=== PATIENT | female | born 1980 | race Caucasian/White ===

== ENCOUNTER 2019-08-03 08:42 | Observation (INO) ==
[2019-08-03 09:59] LABS: Basophils # (auto) 0.02 K/uL (0-0.2); Basophils % (auto) 0.5 %; Eosinophils # (auto) 0.04 K/uL (0-0.5); Eosinophils % (auto) 0.9 %; Hematocrit (blood only) 38.9 % (37-47); Hemoglobin 13.1 g/dL (12.0-16.0); Immature Granulocytes # (auto) 0.01 K/uL (0.00-0.02); Immature Granulocytes % (auto) 0.2 %; Lymphocytes # (auto) 1.21 K/uL (1.2-3.4); Lymphocytes % (auto) 28.3 %; Mean Corpuscular Hemoglobin 28.2 pg (25-34); Mean Corpuscular Hgb Conc 33.7 g/dL (32-36); Mean Corpuscular Volume 83.7 fL (80-100); Mean Platelet Volume 9.2 fL (7.4-10.4); Monocytes # (auto) 0.53 K/uL (0.11-0.59); Monocytes % (auto) 12.4 %; Neutrophils # (auto) 2.46 K/uL (1.4-6.5); Neutrophils % (auto) 57.7 %; Platelet Count 232 K/uL (130-400); RDW Coefficient of Variation 13.2 % (11.5-14.5); Red Blood Count 4.65 M/uL (4.2-5.4); White Blood Count 4.27 K/uL (4.8-10.8)
--- NOTE | 2019-08-03 10:17 | Emergency Department Note ---
Entered by Evita Solorzano acting as a scribe for Qian Beckett DO History of Present Illness General Chief complaint: Chest Pain Stated complaint: CHEST PAIN, SHORTNESS OF BREATH Source: patient History of Present Illness Onset (ago): day(s) (last night) Location: chest Pain Consistency: + other (persistent) Maximum Pain Intensity: 5 Quality: + other (discomfort) Relieved By: not by medication (aspirin) Exacerbated By: not by movement and not by other (drinking coffee) Associated symptoms: + denies other symptoms (stress, anxiety, urinary changes) and + other (lightheadedness, nausea, shortness of breath, diarrhea) The patient is a 38 year old female that is presenting to the Emergency Room with complaints of a persistent chest discomfort that started around 2100 last night. The patient reports that she had some associated lightheadedness and nausea. She states that she felt short of breath. She notes that her symptoms woke her up several times last night. She reports that she took an aspirin dur ing the night but she is unsure if it relieved her symptoms as she went back to sleep. She denies having taken anything else for her symptoms. She states that the discomfort continued into the morning, so she decided to come to the ED to have it evaluated. She denies any radiation of the pain into her back or jaw. She notes that the discomfort is not relieved by positional changes. She denies any history of similar past episodes. She denies any history of GERD or any recent changes in her diet. She states that she had some diarrhea last night. She denies any urinary changes. She reports that she drank coffee this morning without any exacerbation of her symptoms. She notes that she has not had anything else to eat or drink today. She denies any recent travel. She notes that she had a fever, myalgia, and GI upset last week and states that she has had a cold for the past several months. She denies any family history of blood clots. She denies any first degree relatives with cardiac issues. The patient reports that she takes progesterone and estrogen s/p an oophorectomy. She denies any breast pain but notes that she is status post a bilateral mastectomy. She denies feeling unusually stressed or anxious recently. Home Medications Home Medications Medication Instructions Recorded Confirmed Type atorvastatin 20 mg PO DAILY 08/03/19 08/03/19 History estradiol 1 patch TOPICAL [id number] 08/03/19 08/03/19 History multivitamin 1 tab PO QAM 08/03/19 08/03/19 History omega 0-msv-aso-fish oil [Fish Oil] 1 cap PO DAILY 08/03/19 08/03/19 History progesterone micronized 100 mg PO DAILY 08/03/19 08/03/19 History aspirin [Ecotrin Low Strength] 81 mg PO QAM 30 Days #30 tab 08/04/19 Rx isosorbide mononitrate 30 mg PO QAM #30 tab 08/04/19 Rx Allergies Allergy/AdvReac Type Severity Reaction Status Date / Time No Known Allergies Allergy Unverified 08/03/19 10:01 Past Med/Surg History Medical History BRCA1 gene mutation positive in female Dyslipidemia Hormone replacement therapy Surgical History H/O bilateral mastectomy H/O dilation and curettage H/O oophorectomy [place] teeth removed Family History Mother Breast cancer Social History Preferred Language: Korean Communication Ability: Effective 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 and A total of 10 systems reviewed and were otherwise negative Physical Exam Vital Signs Vital Signs - 24 hr 08/03/19 08:46 08/03/19 09:00 08/03/19 09:02 Temperature 97.5 F L Temperature Source Oral Pulse Rate 69 80 82 Pulse Rate from SpO2 Sensor 71 75 Respiratory Rate 18 23 16 Respiratory Effort / Characteristics Non-Labored Spontaneous Respiratory Depth Normal Respiratory Pattern Regular Blood Pressure 130/87 116/70 Blood Pressure Mean 101 74 Blood Pressure Position Sitting Pulse Oximetry 100 100 100 Oxygen Delivery Method Room Air Sepsis Recent Fever Within 48 Hours No Sepsis New/Unexplained Change in Mental Status No Sepsis Action Taken by Nursing No Action Required 08/03/19 09:05 08/03/19 09:30 08/03/19 09:31 Temperature Temperature Source Pulse Rate 69 78 Pulse Rate from SpO2 Sensor 68 79 Respiratory Rate 11 L 15 Respiratory Effort / Characteristics Non-Labored Spontaneous Respiratory Depth Normal Respiratory Pattern Blood Pressure 115/75 Blood Pressure Mean 82 Blood Pressure Position Pulse Oximetry 98 99 Oxygen Delivery Method Sepsis Recent Fever Within 48 Hours Sepsis New/Unexplained Change in Mental Status Sepsis Action Taken by Nursing 08/03/19 10:00 08/03/19 10:01 Temperature Temperature Source Pulse Rate 63 61 Pulse Rate from SpO2 Sensor 64 63 Respiratory Rate 10 L 13 Respiratory Effort / Characteristics Respiratory Depth Respiratory Pattern Blood Pressure 107/73 Blood Pressure Mean 84 Blood Pressure Position Pulse Oximetry 100 99 Oxygen Delivery Method Sepsis Recent Fever Within 48 Hours Sepsis New/Unexplained Change in Mental Status Sepsis Action Taken by Nursing GENERAL: alert, well appearing, well nourished, no distress, non-toxic EYE EXAM: normal conjunctiva, PERRL and EOM's grossly intact OROPHARYNX: no exudate, no erythema, lips, buccal mucosa, and tongue normal and mucous membranes are moist NECK: supple, no nuchal rigidity, no adenopathy, non-tender LUNGS: Clear to auscultation. Normal chest wall mechanics, no w/r/r HEART: no murmurs, S1 normal and S2 normal CHEST: No reproducible chest wall tenderness. ABDOMEN: abdomen soft, non-tender, normo-active bowel sounds, no masses, no rebound or guarding. BACK: Back is symmetrical on inspection and there is no deformity, no midline tenderness, no CVA tenderness. SKIN: no rashes and no bruising UPPER EXTREMITIES: upper extremities are grossly normal. FROM, nml pulses b/l. LOWER EXTREMITIES: No pitting edema. FROM, nml pulses b/l. NEURO EXAM: Normal sensorium, cranial nerves II-XII grossly intact, normal speech, no gross weakness of arms, no gross weakness of legs. Course Course 919:The patient was evaluated in room B08. A complete history and physical examination was performed. 1037: Troponin is 1.21ng/mL. 1045: I updated the patient on her current lab and imaging results. She denies any current discomfort, pain, nausea, or dizziness. She is amenable to the treatment plan. She will be evaluated for further management and care in the hospital. 1058: I discussed the patients case with DICK Vora, who will evaluate the patient for further management and care with Dr. Pacheco as the attending physician. Administered Medications Discontinued Medications Acetaminophen (Tylenol) 650 mg PO Q4H PRN PRN Reason: Pain or Fever Stop: 09/02/19 12:32 Last Admin: 08/04/19 15:13 Dose: 650 mg Documented by: [id number] Admin: 08/04/19 00:52 Dose: 650 mg Documented by: [id number] Aspirin (Aspirin) 324 mg PO NOW STA Stop: 08/03/19 10:45 Last Admin: 08/03/19 11:10 Dose: 324 mg Documented by: [id number] Aspirin (Ecotrin Ectab) 81 mg PO [facility] Stop: 09/03/19 08:59 Last Admin: 08/04/19 07:45 Dose: 81 mg Documented by: [id number] Atorvastatin Calcium (Lipitor) 20 mg PO NOW STA Stop: 08/03/19 13:11 Last Admin: 08/03/19 13:58 Dose: 20 mg Documented by: [id number] Atorvastatin Calcium (Lipitor) 40 mg PO NOW STA Stop: 08/03/19 13:12 Last Admin: 08/03/19 13:58 Dose: 40 mg Documented by: [id number] [facility] ([facility]itor) [facility] [place] [facility] [place]: 09/03/19 08:59 Last Admin: 08/04/19 07:45 Dose: 80 mg Documented by: [id number] Fentanyl Citrate (Fentanyl Citrate) Confirm Administered Dose 100 mcg .ROUTE .STK-MED ONE Stop: 08/04/19 09:34 Last Increment: 08/04/19 10:25 Dose: 25 mcg Documented by: [id number] Fish Oil ([place]-3 (Purified Fish Oil)) 1 gm PO DAILY COUNTS INCLUDE 234 BEDS AT THE [facility] Stop: 09/03/19 08:59 Last Admin: 08/04/19 07:45 Dose: 1 gm Documented by: [id number] Heparin Sodium (Porcine) (Heparin Iv Bolus (Traveling Nurse Use Only)) Confirm Administered Dose 10,000 units .ROUTE .STK-MED ONE Stop: 08/04/19 09:34 Last Admin: 08/04/19 10:25 Dose: Not Given Documented by: [id number] Heparin Sodium/Dextrose () 1 ea IV Q30M COUNTS INCLUDE 234 BEDS AT THE [facility]; Protocol Stop: 08/03/19 23:59 Last Admin: 08/03/19 16:54 Dose: Not Given Documented by: [id number] Heparin Sodium/Sodium Chloride (Heparin/Nss 1000 Unit/500ml Flush Bag) Confirm Administered Dose 3,000 units IV .STK-MED ONE Stop: 08/04/19 09:34 Last Admin: 08/04/19 09:47 Dose: 3,000 units Documented by: [id number] Heparin Sodium/Dextrose (Heparin Sodium/Dextrose) 25,000 units in 500 mls @ 0 mls/hr IV .Q0M COUNTS INCLUDE 234 BEDS AT THE [facility]; Protocol Stop: 09/02/19 16:44 Last Titration: 08/04/19 08:47 Dose: 0 units/hr, 0 mls/hr Documented by: [id number] Cosigned by: [id number] Titration: 08/04/19 01:21 Dose: 1,000 units/hr, 20 mls/hr Documented by: [id number] Cosigned by: [id number] Titration: 08/03/19 18:58 Dose: 1,000 units/hr, 20 mls/hr Documented by: [id number] Cosigned by: [id number] Admin: 08/03/19 18:02 Dose: 1,000 units/hr, 20 mls/hr Documented by: [id number] Cosigned by: [id number] Heparin Sodium (Porcine) 4,000 (units/ Syringe) 4 mls @ 10 mls/min IV NOW STA Stop: 08/03/19 16:50 Last Admin: 08/03/19 18:01 Dose: 10 mls/min Documented by: [id number] Cosigned by: [id number] Sodium Chloride (Nss) 500 mls @ 500 mls/hr IV .Q1H ONE Stop: 08/04/19 01:47 Last Infusion: 08/04/19 02:19 Dose: 0 mls/hr Documented by: [id number] Admin: 08/04/19 01:16 Dose: 500 mls/hr Documented by: [id number] Dextrose/Lactated Ringer's (D5w And Lactated Ringers) 1,000 mls @ 100 mls/hr IV .Q10H [facility] Stop: 09/03/19 01:59 Last Infusion: 08/04/19 08:47 Dose: 100 mls/hr Documented by: [id number] Infusion: 08/04/19 07:43 Dose: 75 mls/hr Documented by: [id number] Admin: 08/04/19 02:16 Dose: 40 mls/hr Documented by: [id number] Sodium Chloride (Nss) 500 mls @ 500 mls/hr IV .Q1H ONE Stop: 08/04/19 05:33 Last Infusion: 08/04/19 06:02 Dose: 0 mls/hr Documented by: [id number] Admin: 08/04/19 04:52 Dose: 500 mls/hr Documented by: [id number] Isosorbide Mononitrate (Imdur Extended Rel) 30 mg PO QAM COUNTS INCLUDE 234 BEDS AT THE [facility] Stop: 09/03/19 11:29 Last Admin: 08/04/19 12:57 Dose: 30 mg Documented by: [id number] Metoprolol Tartrate (Lopressor) 12.5 mg PO BID COUNTS INCLUDE 234 BEDS AT THE [facility] Stop: 09/02/19 20:59 Last Admin: 08/04/19 07:42 Dose: Not Given Documented by: [id number] Admin: 08/03/19 21:33 Dose: 12.5 mg Documented by: [id number] Midazolam HCl (Versed) Confirm Administered Dose 2 mg .ROUTE .STK-MED ONE Stop: 08/04/19 09:34 Last Admin: 08/04/19 10:25 Dose: 2 mg Documented by: [id number] Miscellaneous (Order Awaiting Action) 1 ea N/A QS COUNTS INCLUDE 234 BEDS AT THE [facility] Stop: 09/02/19 15:59 Last Admin: 08/04/19 07:53 Dose: Not Given Documented by: [id number] Admin: 08/03/19 23:44 Dose: Not Given Documented by: [id number] Admin: 08/03/19 15:32 Dose: Not Given Documented by: [id number] Nicardipine HCl (Cardene) Confirm Administered Dose 25 mg .ROUTE .STK-MED ONE Stop: 08/04/19 09:34 Last Admin: 08/04/19 09:45 Dose: 25 mg Documented by: [id number] Nitroglycerin (Nitro-Bid 2%) 0.5 inch EXT Q6 COUNTS INCLUDE 234 BEDS AT THE [facility] Stop: 09/02/19 16:59 Last Admin: 08/04/19 00:51 Dose: Not Given Documented by: [id number] Admin: 08/03/19 18:35 Dose: 0.5 inch Documented by: [id number] Nitroglycerin/Dextrose (Nitroglycerin/D5w 100 Mcg/Ml 20ml Syringe) Confirm Administered Dose 2,000 mcg .ROUTE .STK-MED ONE Stop: 08/04/19 09:35 Last Admin: 08/04/19 09:47 Dose: 2,000 mcg Documented by: [id number] Non-Formulary Medication (Estradiol) 1 patch TOP 2XWK [facility] Stop: 09/02/19 12:32 Last Admin: 08/03/19 15:32 Dose: Not Given Documented by: [id number] Tramadol HCl (Ultram) 25 mg PO Q4H PRN PRN Reason: Pain Stop: 09/03/19 01:18 Last Admin: 08/04/19 01:43 Dose: 25 mg Documented by: [id number] Medical Decision Making Differential Diagnosis Differential diagnoses includes but is not limited to acute coronary syndrome, myocardial infarction, pericarditis, pulmonary embolus, aortic dissection, pneumonia, pneumothorax, musculoskeletal, shingles, esophageal. Medical Records Attestation: I reviewed the patient's medical records. Home Medications Current Medication List: was personally reviewed by me Laboratory Data Attestation: I reviewed the patient's lab results. Result diagrams: 08/04/19 01:36 08/04/19 01:36 Lab Results 08/03/19 08/03/19 08/03/19 Range/Units 09:45 09:45 09:45 WBC 4.27 L (4.8-10.8) K/uL RBC 4.65 (4.2-5.4) M/uL Hgb 13.1 (12.0-16.0) g/dL Hct 38.9 (37-47) % MCV 83.7 (80-100) fL MCH 28.2 (25-34) pg MCHC 33.7 (32-36) g/dL RDW Std Deviation 40.0 (36.4-46.3) fL RDW Coeff of Benoit 13.2 (11.5-14.5) % Plt Count 232 (130-400) K/uL MPV 9.2 (7.4-10.4) fL Immature Gran % (Auto) 0.2 % Neut % (Auto) 57.7 % Lymph % (Auto) 28.3 % [place] % (Auto) 12.4 % Eos % (Auto) 0.9 % Baso % (Auto) 0.5 % Immature Gran # (Auto) 0.01 (0.00-0.02) K/uL Neut # (Auto) 2.46 (1.4-6.5) K/uL Lymph # (Auto) 1.21 (1.2-3.4) K/uL [place] # (Auto) 0.53 (0.11-0.59) K/uL Eos # (Auto) 0.04 (0-0.5) K/uL Baso # (Auto) 0.02 (0-0.2) K/uL D-Dimer 360 (0-500) ug/L FEU Sodium 141 (136-145) mmol/L Potassium 4.2 (3.5-5.1) mmol/L Chloride 109 H (98-107) mmol/L Carbon Dioxide 28 (21-32) mmol/L Anion Gap 4.0 (3-11) BUN 9 (7-18) mg/dl Creatinine 0.77 (0.6-1.2) mg/dl Est Cr Clr Drug Dosing 83.9 ml/min Est GFR ( Amer) 111.9 Est GFR (Non-Af Amer) 96.6 BUN/Creatinine Ratio 11.7 (10-20) Glucose 89 (70-99) mg/dl Calcium 9.0 (8.5-10.1) mg/dl Magnesium 2.4 (1.8-2.4) mg/dl Total Bilirubin 0.3 (0.2-1) mg/dl AST 29 (15-37) U/L ALT 26 (12-78) U/L Alkaline Phosphatase 78 (45-117) U/L Total Creatine Kinase (26-192) U/L Troponin I 1.210 H* (0-0.045) ng/ml NT-Pro-B Natriuret Pep 206 (0-450) pg/ml Total Protein 6.9 (6.4-8.2) gm/dl Albumin 3.5 (3.4-5.0) gm/dl Globulin 3.4 (2.5-4.0) gm/dl Albumin/Globulin Ratio 1.0 (0.9-2) Lipase 106 (73-393) U/L TSH 0.618 (0.300-4.500) uIu/ml HCG, Qual (Negative) 08/03/19 08/03/19 Range/Units 09:45 09:45 WBC (4.8-10.8) K/uL RBC (4.2-5.4) M/uL Hgb (12.0-16.0) g/dL Hct (37-47) % MCV (80-100) fL MCH (25-34) pg MCHC (32-36) g/dL RDW Std Deviation (36.4-46.3) fL RDW Coeff of Benoit (11.5-14.5) % Plt Count (130-400) K/uL MPV (7.4-10.4) fL Immature Gran % (Auto) % Neut % (Auto) % Lymph % (Auto) % [place] % (Auto) % Eos % (Auto) % Baso % (Auto) % Immature Gran # (Auto) (0.00-0.02) K/uL Neut # (Auto) (1.4-6.5) K/uL Lymph # (Auto) (1.2-3.4) K/uL [place] # (Auto) (0.11-0.59) K/uL Eos # (Auto) (0-0.5) K/uL Baso # (Auto) (0-0.2) K/uL D-Dimer (0-500) ug/L FEU Sodium (136-145) mmol/L Potassium (3.5-5.1) mmol/L Chloride (98-107) mmol/L Carbon Dioxide (21-32) mmol/L Anion Gap (3-11) BUN (7-18) mg/dl Creatinine (0.6-1.2) mg/dl Est Cr Clr Drug Dosing ml/min Est GFR ( Amer) Est GFR (Non-Af Amer) BUN/Creatinine Ratio (10-20) Glucose (70-99) mg/dl Calcium (8.5-10.1) mg/dl Magnesium (1.8-2.4) mg/dl Total Bilirubin (0.2-1) mg/dl AST (15-37) U/L ALT (12-78) U/L Alkaline Phosphatase (45-117) U/L Total Creatine Kinase 158 (26-192) U/L Troponin I (0-0.045) ng/ml NT-Pro-B Natriuret Pep (0-450) pg/ml Total Protein (6.4-8.2) gm/dl Albumin (3.4-5.0) gm/dl Globulin (2.5-4.0) gm/dl Albumin/Globulin Ratio (0.9-2) Lipase (73-393) U/L TSH (0.300-4.500) uIu/ml HCG, Qual Negative (Negative) Imaging Data Radiologist's Impression: Radiology results as stated below per my review and the radiologist's interpretation: XR chest 1V portable HISTORY: 38 years-old Female chest pain acute atypical chest pain COMPARISON: None available TECHNIQUE: Portable AP view of the chest FINDINGS: Cardiomediastinal and hilar silhouettes are within normal limits. No pneumothorax, pleural effusion, focal airspace consolidation or overt pulmonary edema. Surgical clips project over the chest wall. Bones of the chest appear grossly intact. IMPRESSION: No acute process. The above report was generated using voice recognition software. It may contain grammatical, syntax or spelling errors. Electronically signed by: Perez Zamora M.D. 08/03/2019 10:29 AM ECG Data Attestation: I personally reviewed and interpreted this ECG as follows: Indication: + chest pain Rate (beats per minute): 66 Rhythm: + sinus rhythm ECG Intervals/blocks: + Normal QRS, + Normal QT and + Normal [place] ECG [place]: + Normal ECG ST segments: + T-wave inversions (aVF); no ST elevation ECG Findings: + Other (low voltage); no PACs and no PVCs Blood Pressure Blood Pressure Findings: Normal blood pressure MDM Narrative Pt here well appearing and pain improving. HEART score 1 based on tobacco use and hyperlipidemia. No recent symptoms with exertion and no significant family hx. Discussed all results with family and discussed need for additional inpatient mgmt. Pt in agreement with plan. Pt pain free here. Given ASA. Possible pericarditis/myocarditis, pericardial effusion due to recent URI symptoms. No prior cardiac evaluation. Will defer additional meds including heparin to inpatient team given asymptomatic at this time. No acute EKG changes . Case discussed with hospitalist. Impression & Plan Chest pain, Elevated troponin Discharge Plan Visit Data *Final* Discharge Date/Time: 08/03/19 12:15 Chief Complaint: Chest Pain Stated Complaint: CHEST PAIN, SHORTNESS OF BREATH ED Provider: Qian Beckett Discharge Problem: Chest pain, Elevated troponin Patient Disposition: Admitted As Inpatient Discharge Instructions Interventions: ED Discharge Assessment Last Done: 08/03/19 12:15 Discharge Problem: Chest pain Qualifiers: Chest pain type: unspecified Qualified Code(s): R07.9 - Chest pain, unspecified The scribe's documentation has been prepared under my direction and personally reviewed by me in its entirety. I confirm that the note above accurately reflects all work, treatment, procedures, and medical decision making performed by me.
[2019-08-03 10:21] LABS: Pregnancy Test, Serum Negative (Negative)
[2019-08-03 10:22] LABS: Albumin Level 3.5 gm/dl (3.4-5.0); BUN Creatinine Ratio 11.7 (10-20); Creatinine Clr Calc Pharmacy 83.9 ml/min; Est GFR (African American) 111.9; Est GFR (Non-African American) 96.6; Magnesium 2.4 mg/dl (1.8-2.4); Potassium 4.2 mmol/L (3.5-5.1)
--- NOTE | 2019-08-03 10:31 | XRay Report ---
XR chest 1V portable HISTORY: 38 years-old Female chest pain acute atypical chest pain COMPARISON: None available TECHNIQUE: Portable AP view of the chest FINDINGS: Cardiomediastinal and hilar silhouettes are within normal limits. No pneumothorax, pleural effusion, focal airspace consolidation or overt pulmonary edema. Surgical clips project over the chest wall. Demetris jose alfredo of the chest appear grossly intact. IMPRESSION: No acute process. The above report was generated using voice recognition software. It may contain grammatical, syntax o r spelling errors. Electronically signed by: Perez Zamora M.D. 08/03/2019 10:29 AM
[2019-08-03 10:35] LABS: Bilirubin,Total 0.3 mg/dl (0.2-1); Globulin 3.4 gm/dl (2.5-4.0); Thyroid Stimulating Hormone 0.618 uIu/ml (0.300-4.500); Total Protein 6.9 gm/dl (6.4-8.2); Troponin I 1.21 ng/ml (0-0.045)
[2019-08-03 10:40] LABS: D Dimer 360 ug/L FEU (0-500)
[2019-08-03] MEDS ORDERED: ASPIRIN CHEW 324 MG PO STA (10:44)
--- NOTE | 2019-08-03 11:32 | History & Physical Report ---
Date of Service August 03, 2019 Assessment & Plan (1) Chest pain: Multiple episodes of chest pain in setting of hyperlipidemia and HRT use. Also patient reporting recent cold symptoms with significant myalgia and malaise just 2 to 3 days ago, which may be influencing troponin. Mildly elevated troponin at 1.2 with no evidence of acute ischemia but does have T wave inversions in V3 and aVF without baseline EKG to review. LORNA risk score is 2. We will continue baby aspirin, add Lipitor 80 mg for plaque stabilization, and trend troponin. We will add a CK to blood work already drawn. Currently patient is chest pain-free but have nitro or morphine available if symptoms return. If pain is unable to be controlled may consider adding heparin and contacting cardiology to consider catheterization. N.p.o. except ice chips and small sips of water while we are monitoring over the next several hours until the next troponin is drawn. Echo ordered. If chest pain returns would get repeat EKG to monitor for dynamic changes. (2) Dyslipidemia: Recently started Lipitor within the last couple of months and doing well on Lipitor 20 daily. She has a family history of hyperlipidemia. Recent LDL was around 200. Repeat lipids in am. (3) BRCA1 gene mutation positive in female: Status post double mastectomy with oophorectomy in [address] [facility], on hormone replacement therapy with estrogen patch and daily progesterone. Continue HRT. (4) DVT prophylaxis: Lovenox Full code Dispo-to telemetry, expect home in a.m. pending cardiac recommendations and evolution of symptoms over the next 24 hours. Angie Pacheco DO [facility] History of Present Illness Chief Complaint: chest pain Primary Care Provider: Alberto Juarez MD 38-year-old female with onset of chest pain last night while sitting playing board game at her table. Pain was in the left anterior chest and did not radiate. Although did she did not report any associated symptoms to me she did report to the ER physician she had associated lightheadedness and nausea and felt short of breath with the pain. Her symptoms woke her up several times last night and the pain persisted when she woke up this morning and was associated with some nausea. She took an aspirin during the night but is unsure if it relieves her symptoms. 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 She is a non-smoker with risk factors including early menopause secondary to oophorectomy on hormone replacement therapy for the past 4 years and hyperlipidemia recently discovered and she was placed on Lipitor within the last couple of months. LDL is approximately 200. She has a family history of hyperlipidemia but no known history of early heart disease. She also reports a recent upper respiratory tract infection which involves symptoms of severe myalgia and malaise where she was lying in bed for almost a full day just 2 to 3 days ago. Her child was also ill with the same symptoms. These have since improved. Troponin is mildly elevated at 1.2 today otherwise EKG reveals no evidence of active ischemia, d- dimer is normal at 360. Her chest pain has resolved. She was given an aspirin 324 mg morning but has not had any nitroglycerin or other pain medication. She did take her Lipitor 20mg this morning. Review of systems also reveals one episode of diarrhea this morning. She denies any recent travel. Allergies Allergy/AdvReac Type Severity Reaction Status Date / Time No Known Allergies Allergy Unverified 08/03/19 10:01 Home Medications Home Medications Medication Instructions Recorded Confirmed Type atorvastatin 20 mg PO DAILY 08/03/19 08/03/19 History estradiol 1 patch TOPICAL 2XWK 08/03/19 08/03/19 History multivitamin 1 tab PO QAM 08/03/19 08/03/19 History omega 3-iyk-mjk-fish oil [Fish Oil] 1 cap PO DAILY 08/03/19 08/03/19 History progesterone micronized 100 mg PO DAILY 08/03/19 08/03/19 History Past Med/Surg History Medical History BRCA1 gene mutation positive in female Hormone replacement therapy Surgical History H/O bilateral mastectomy H/O dilation and curettage H/O oophorectomy [place] teeth removed Family History Mother Breast cancer Social History Preferred Language: Macanese Communication Ability: Effective 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 Beliefs That Will Affect Care: None Current Living Situation: Family Other Information That Helps Us Care for You: No Feels Safe at Home: Yes Safety Concerns: Feels Safe At This Time Smoking Status: Current some day smoker Cigarettes Per Day: 1-2 ; Hx Alcohol Use: Yes Alcohol type: wine Hx Substance Use: No Review of Systems Review of Systems: All systems reviewed & are unremarkable except as noted in HPI & below Physical Exam Physical Exam: CONSTITUTIONAL: WNWD, vitals as above, generally well- appearing EYES: PERRL, normal conjunctivae, no scleral icterus ENT: external ear and nose normal, oropharynx clear, MMM NECK: trachea midline RESPIRATORY: clear to auscultation bilaterally, no crackles, rales or wheezes, normal respiratory effort CARDIOVASCULAR: regular rate and rhythm, S1 and 2 heard without murmurs, gallops or rubs, no JVD, no peripheral edema CHEST: inspection of chest was normal, nontender to palpation, skin appears normal. GASTROINTESTINAL: normal bowel sounds, soft, nontender, nondistended MUSCULOSKELETAL: strength 5/5 throughout, head is normocephalic and atraumatic SKIN: warm and dry NEUROLOGIC: CN 2-12 grossly intact, no sensory deficit, normal cognition, normal speech, no gross neurologic deficits. PSYCHIATRIC: alert cooperative and oriented to person, place and time. Results & Data Vital Signs (Past 12 Hours) Vital Signs Temp Pulse Pulse Resp BP BP Pulse Ox 08/03/19 11:11 68 15 117/67 99 08/03/19 10:01 61 13 99 08/03/19 10:00 63 10 L 107/73 100 08/03/19 09:31 78 15 99 08/03/19 09:30 69 11 L 115/75 98 08/03/19 09:02 82 16 100 08/03/19 09:00 80 23 116/70 100 08/03/19 08:46 36.4 C L 69 18 130/87 100 Laboratory Results Short CBC 08/03/19 Range/Units 09:45 WBC 4.27 L (4.8-10.8) K/uL Hgb 13.1 (12.0-16.0) g/dL Hct 38.9 (37-47) % Plt Count 232 (130-400) K/uL BMP 08/03/19 09:45 Sodium 141 Potassium 4.2 Chloride 109 H Carbon Dioxide 28 BUN 9 Creatinine 0.77 Glucose 89 Calcium 9.0 Cardiac Enzymes 08/03/19 08/03/19 Range/Units 09:45 09:45 Total Creatine Kinase 158 (26-192) U/L Troponin I 1.210 H* (0-0.045) ng/ml Liver Function 08/03/19 Range/Units 09:45 Total Bilirubin 0.3 (0.2-1) mg/dl AST 29 (15-37) U/L ALT 26 (12-78) U/L Alkaline Phosphatase 78 (45-117) U/L Albumin 3.5 (3.4-5.0) gm/dl Diagnostic Findings XR chest 1V portable HISTORY: 38 years-old Female chest pain acute atypical chest pain COMPARISON: None available TECHNIQUE: Portable AP view of the chest FINDINGS: Cardiomediastinal and hilar silhouettes are within normal limits. No pneumothorax, pleural effusion, focal airspace consolidation or overt pulmonary edema. Surgical clips project over the chest wall. Bones of the chest appear grossly intact. IMPRESSION: No acute process. Medications Administered ASA 324mg ECG Rhythm: sinus rhythm (TWI in V3, AVF. No ST changes or q waves noted.) Code Status & VTE Plan VTE Prophylaxis Plan VTE Prophylaxis will be ordered: Yes (1) Chest pain Chest pain type: unspecified Qualified Code(s): R07.9 - Chest pain, unspecified
[2019-08-03] MEDS ORDERED: NITROGLYCERIN SL 0.4 MG/TAB TAB SL PRN (12:33)
[2019-08-03] MEDS ORDERED: MoRPHine SULFATE 2 MG/ML CARP IV PRN (12:33)
[2019-08-03] MEDS ORDERED: POLYETHYLENE (MIRALAX) 17 GM PACK PO PRN (12:33)
[2019-08-03] MEDS ORDERED: ONDANSETRON INJ 2 MG/ML 2 ML VIAL IV PRN (12:33)
[2019-08-03] MEDS ORDERED: ESTRADIOL TOP SCH (12:33)
[2019-08-03] MEDS ORDERED: ATORVASTATIN 20 MG TAB PO STA (13:10)
[2019-08-03] MEDS ORDERED: ATORVASTATIN 40 MG TAB PO STA (13:11)
[2019-08-03] MEDS ORDERED: HEPARIN SODIUM/DEXTROSE 25,000 UNITS/500 ML BAG IV SCH (16:45)
--- NOTE | 2019-08-03 16:45 | Cardiology Consultation ---
Date of Consultation August 03, 2019 Assessment & Plan (1) Non-ST elevation (NSTEMI) myocardial infarction: (2) Dyslipidemia: (3) Tobacco abuse: I had a long discussion with the patient and her family regarding elevated troponin, abnormal ECG in the setting of chest discomfort suggesting a non-ST segment elevation myocardial infarction. Recommend IV heparin and topical nitrates. Risk, benefits, alternatives to cardiac catheterization with coronary angiography discussed at length. Patient agreeable. We will proceed with coronary angiography in the a.m. low-dose beta-lai, metoprolol 12.5 mg twice daily will be added as well. Continue telemetry monitoring. N.p.o. except med ications after midnight. History of Present Illness Reason for Consultation: chest pain, elevated troponin Requesting Physician: Dr. Pacheco Attending Physician: Angie Pacheco, History of Present Illness 38-year-old female presented to the emergency department with chest discomfort. Discomfort began last evening while playing dictionary with her family. She noted sudden onset of substernal chest heaviness and tightness. Discomfort persisted for more than 1 hour and slowly subsided. Pain recurred throughout the evening. This morning she noted discomfort once again, rated 4/10 and she came to the emergency department for further evaluation and treatment. Initial ECG demonstrates T wave inversions in the inferior leads. T wave flattening noted in the lateral precordial leads. Discomfort slowly subsided. Initial troponin mildly elevated, 1.2. Repeat troponin trending upward, 1.8. Patient pain-free since approximately 10 AM. No dysrhythmias noted on telemetry. In general she is an active person. She exercises regularly. Unfortunately, she smokes 3 to 4 cigarettes daily. Taking hormone replacement therapy for the past 4 years secondary to oophorectomy. Notes elevated cholesterol readings with LDL in excess of 200 mg/DL for several months. Recently prescribed statin therapy by her. Denies family history of premature coronary disease. Denies personal history of coronary disease, congestive heart failure, diabetes, peripheral vascular disease, or rheumatic fever as a child. Family present at bedside. Patient offers no additional concerns/complaints at this time. Allergies Allergy/AdvReac Type Severity Reaction Status Date / Time No Known Allergies Allergy Unverified 08/03/19 10:01 Home Medications Home Medications Medication Instructions Recorded Confirmed Type atorvastatin 20 mg PO DAILY 08/03/19 08/03/19 History estradiol 1 patch TOPICAL 2XWK 08/03/19 08/03/19 History multivitamin 1 tab PO QAM 08/03/19 08/03/19 History omega 6-fbm-ire-fish oil [Fish Oil] 1 cap PO DAILY 08/03/19 08/03/19 History progesterone micronized 100 mg PO DAILY 08/03/19 08/03/19 History Patient History Medical History BRCA1 gene mutation positive in female Dyslipidemia Hormone replacement therapy Surgical History H/O bilateral mastectomy H/O dilation and curettage H/O oophorectomy [place] teeth removed Family History Mother Breast cancer Social History Preferred Language: Ivorian Communication Ability: Effective Manager Of Data Required: No Beliefs That Will Affect Care: None Current Living Situation: Family Other Information That Helps Us Care for You: No Feels Safe at Home: Yes Safety Concerns: Feels Safe At This Time Smoking Status: Current some day smoker Cigarettes Per Day: 1-2 ; Hx Alcohol Use: Yes Alcohol type: wine Hx Substance Use: No Review of Systems Review of Systems: All systems reviewed & are unremarkable except as noted in HPI & below Physical Exam Physical Exam: General: NAD, AAO x3, well nourished. HEENT: Normocephalic. Atraumatic. Conjunctiva pink, no scleral icterus. Neck: No carotid bruits, the carotid upstrokes are brisk. No JVD. No HJR Heart: Regular normal S-1 and S-2 no S-3 or S-4 gallop. No murmurs or rub appreciated. PMI is not displaced. No RV heave. Lungs: Clear bilateral without rales , rhonchi, or wheeze. Abdomen: Normal bowel sounds. Soft. Nontender. No masses or organomegaly. No abdominal bruits. Extremities: No clubbing, cyanosis, or edema. Pulses: radial=2/4, Dorsalis pedis =2/4, posterior tibial=2/4. Neuro: Cranial nerves grossly intact. No focal motor deficit. Results & Data Vital Signs (Past 12 Hours) Vital Signs Temp Pulse Pulse Resp BP BP BP 08/03/19 16:25 65 08/03/19 15:24 36.3 C L 61 18 120/68 08/03/19 12:15 61 20 130/76 08/03/19 11:11 68 15 117/67 08/03/19 10:01 61 13 08/03/19 10:00 63 10 L 107/73 08/03/19 09:31 78 15 08/03/19 09:30 69 11 L 115/75 08/03/19 09:02 82 16 08/03/19 09:00 80 23 116/70 08/03/19 08:46 36.4 C L 69 18 130/87 Pulse Ox 08/03/19 16:25 08/03/19 15:24 100 08/03/19 12:15 99 08/03/19 11:11 99 08/03/19 10:01 99 08/03/19 10:00 100 08/03/19 09:31 99 08/03/19 09:30 98 08/03/19 09:02 100 08/03/19 09:00 100 08/03/19 08:46 100
[2019-08-03] MEDS ORDERED: HEPARIN IV BOLUS 4,000 UNITS in SYRINGE 0 ML IV STA (16:49)
[2019-08-03] MEDS: NITROGLYCERIN 2% OINTMENT 30GM TUBE EXT SCH (18:35)
[2019-08-03] MEDS ORDERED: ENOXAPARIN INJ 40 MG/0.4 ML SYR SQ SCH (21:00)
[2019-08-03] MEDS: METOPROLOL TARTRATE 25 MG TAB PO SCH (21:33)
[2019-08-04] MEDS ORDERED: SODIUM CHLORIDE 0.9% 500 ML IV ONE ×2 (00:48→04:34)
[2019-08-04] MEDS: NITROGLYCERIN 2% OINTMENT 30GM TUBE EXT SCH (00:51)
[2019-08-04] MEDS: ACETAMINOPHEN 325 MG TAB PO PRN ×2 (00:52→15:13)
[2019-08-04 01:14] LABS: Partial Thromboplastin Ratio 2.3
[2019-08-04] MEDS ORDERED: TRAMADOL HCL 50 MG TABLET PO PRN (01:19)
[2019-08-04] MEDS ORDERED: LORazepam 0.25 MG/0.5 ML VIAL IV PRN (01:20)
[2019-08-04 01:47] LABS: Basophils # (auto) 0.02 K/uL (0-0.2); Basophils % (auto) 0.4 %; Eosinophils % (auto) 1.8 %; Hematocrit (blood only) 36.7 % (37-47); Hemoglobin 12.5 g/dL (12.0-16.0); Immature Granulocytes # (auto) 0.01 K/uL (0.00-0.02); Immature Granulocytes % (auto) 0.2 %; Lymphocytes # (auto) 1.72 K/uL (1.2-3.4); Lymphocytes % (auto) 31.6 %; Mean Corpuscular Hemoglobin 28.2 pg (25-34); Mean Corpuscular Hgb Conc 34.1 g/dL (32-36); Mean Corpuscular Volume 82.7 fL (80-100); Mean Platelet Volume 9.1 fL (7.4-10.4); Monocytes # (auto) 0.54 K/uL (0.11-0.59); Monocytes % (auto) 9.9 %; Neutrophils # (auto) 3.06 K/uL (1.4-6.5); Neutrophils % (auto) 56.1 %; Platelet Count 228 K/uL (130-400); RDW Coefficient of Variation 13.1 % (11.5-14.5); Red Blood Count 4.44 M/uL (4.2-5.4); White Blood Count 5.45 K/uL (4.8-10.8)
[2019-08-04] MEDS ORDERED: D5W AND LACTATED RINGERS 1,000 ML IV SCH ×2 (02:00→05:30)
[2019-08-04 02:10] LABS: BUN Creatinine Ratio 13.6 (10-20); Calcium 7.9 mg/dl (8.5-10.1); Est GFR (African American) 113.7; Est GFR (Non-African American) 98.1; Magnesium 2.4 mg/dl (1.8-2.4); Potassium 3.5 mmol/L (3.5-5.1)
[2019-08-04 02:14] LABS: Troponin I 1.88 ng/ml (0-0.045)
[2019-08-04 03:22] LABS: Albumin Level 3.2 gm/dl (3.4-5.0)
[2019-08-04] MEDS: METOPROLOL TARTRATE 25 MG TAB PO SCH (07:42)
[2019-08-04] MEDS ORDERED: ASPIRIN 81 MG ECTAB PO SCH (09:00)
[2019-08-04] MEDS ORDERED: OMEGA-3 (PURIFIED FISH OIL) 1 GM CAP PO SCH (09:00)
[2019-08-04] MEDS ORDERED: PROGESTERONE MICRONIZED 100 MG PO SCH (09:00)
[2019-08-04] MEDS ORDERED: ATORVASTATIN 40 MG TAB PO SCH (09:00)
--- NOTE | 2019-08-04 09:20 | Pre Anesthesia Assessment ---
Date of Service August 04, 2019 Pre Sedation Assessment Vital Signs Temp Pulse Pulse Resp BP BP BP 08/04/19 11:00 63 20 109/75 08/04/19 10:55 61 20 109/83 08/04/19 09:15 71 20 118/68 08/04/19 08:00 64 08/04/19 07:55 36.9 C 67 17 89/55 L 08/04/19 06:02 104/64 08/04/19 04:07 36.8 C 66 18 95/58 L 08/04/19 00:19 37.0 C 62 18 99/56 L 08/04/19 00:15 65 08/03/19 20:29 36.7 C 72 20 113/74 08/03/19 16:25 65 08/03/19 15:24 36.3 C L 61 18 120/68 08/03/19 12:15 61 20 130/76 08/03/19 11:11 68 15 117/67 Pulse Ox 08/04/19 11:00 100 08/04/19 10:55 100 08/04/19 09:15 99 08/04/19 08:00 08/04/19 07:55 98 08/04/19 06:02 08/04/19 04:07 98 08/04/19 00:19 98 08/04/19 00:15 08/03/19 20:29 98 08/03/19 16:25 08/03/19 15:24 100 08/03/19 12:15 99 08/03/19 11:11 99 Cardiovascular RRR, no murmur, no edema Respiratory normal respiratory effort, lungs clear to auscultation Pre-Sedation Airway Assessment Smoking Status: Current some day smoker Hx Sleep Apnea: No Short, Thick Neck: No Thyromental Distance: > or= 3.5 Finger Breadths Oral Cavity: + WNL Mallampati Class: I ASA: ASA2 NPO Status Date of Last Intake of Fluids: 08/03/19 Time of Last Intake of Fluids: 20:00 Date of Last Intake of Solid Food: 08/03/19 Time of Last Intake of Solid Foods: 20:00 Procedure Planning Contraindications for Sedation: none Current Medications Reviewed: Yes Notes The planned sedation has been discussed with the patient. Informed Consent was obtained. I have identified the patient, determined the appropriateness of sedation and have assessed the patient immediately prior to the procedure. All medicine(s) and interventions are by my order.
[2019-08-04] MEDS ORDERED: NiCARDipine HCL INJ 2.5 MG/ML 10 ML AMP ONE (09:33)
[2019-08-04] MEDS ORDERED: fentaNYL citrate 100 MCG/2 ML VIAL ONE (09:33)
[2019-08-04] MEDS ORDERED: HEPARIN (PORCINE) 1000 UNIT/ML 10 ML (CATH LAB USE ONLY) ONE (09:33)
[2019-08-04] MEDS ORDERED: MIDAZOLAM HCL 1 MG/ML 2ML VIAL ONE (09:33)
[2019-08-04] MEDS ORDERED: NITROGLYCERIN/D5W 100MCG/ML 20ML SYR ONE (09:34)
--- NOTE | 2019-08-04 10:47 | XCELERA ---
[id number] [id number]
--- NOTE | 2019-08-04 10:54 | Post Anesthesia Assessment ---
Date of Service August 04, 2019 Post Sedation Assessment Vital Signs Temp Pulse Pulse Pulse Resp BP BP 08/04/19 12:15 60 16 109/70 08/04/19 12:00 69 16 121/80 08/04/19 11:45 58 L 16 107/75 08/04/19 11:30 58 L 16 112/70 08/04/19 11:10 61 20 105/70 08/04/19 11:05 61 20 107/69 08/04/19 11:00 63 20 109/75 08/04/19 10:55 61 20 109/83 08/04/19 09:15 71 20 118/68 08/04/19 08:00 64 08/04/19 07:55 36.9 C 67 17 89/55 L 08/04/19 06:02 104/64 08/04/19 04:07 36.8 C 66 18 95/58 L 08/04/19 00:19 37.0 C 62 18 99/56 L 08/04/19 00:15 65 08/03/19 20:29 36.7 C 72 20 113/74 08/03/19 16:25 65 08/03/19 15:24 36.3 C L 61 18 120/68 Pulse Ox 08/04/19 12:15 100 08/04/19 12:00 100 08/04/19 11:45 100 08/04/19 11:30 97 08/04/19 11:10 100 08/04/19 11:05 100 08/04/19 11:00 100 08/04/19 10:55 100 08/04/19 09:15 99 08/04/19 08:00 08/04/19 07:55 98 08/04/19 06:02 08/04/19 04:07 98 08/04/19 00:19 98 08/04/19 00:15 08/03/19 20:29 98 08/03/19 16:25 08/03/19 15:24 100 Recovery Score Respiration: Deep Breath/Cough Circulation: +/-20% PreAnes Value Consciousness: Fully Awake Oxygen Saturation: > 92% On Room Air Discharge Sedation Level of Care: Phase I Post Sedation Plan On clinical assessment, the patient appears to have tolerated the sedation without complications. Patient is recovering as anticipated. Patient will continue to be monitored by nursing and may be discharged when sedation discharge criteria are met per below protocol. Upon Completions of procedure up to 15 minutes continue every 5 minute vital signs and the P.A.R. score; then discharge to a Phase I or Fast Track to Phase II per the following guidelines: * Discharge Patient to appropriate Phase II area if PAR is 8 or greater or return to pre- procedure baseline. The post - procedure orders will be as directed. * If PAR score is less than 8 or not return to pre-procedure baseline then patient will follow Phase I monitoring till PAR is reached for Phase II. The Phase I may be done in procedure room or may call to secure a Phase I area. * If naloxone or flumazenil are used for reversal, hold in Phase I for continued monitoring from when last reversal dose was given for a minimum of 60 minutes or longer pending the nurse and/or physician discretion of patient condition before discharge to Phase II. Please call the Sedation Physician to re-evaluate and complete post-note for discharge to Phase II area. Do NOT discharge from procedure sedation or Phase 1 until post- sedation evaluation note is complete by procedure /sedation MD Sedation Discharge Instructions to be given to the patient at discharge to home.
[2019-08-04] MEDS ORDERED: ONDANSETRON INJ 2 MG/ML 2 ML VIAL IV PRN (11:03)
--- NOTE | 2019-08-04 11:03 | Cardiac Catheterization ---
Cardiac Cath Procedure Full Procedure Date August 04, 2019 Pre-Procedure Diagnosis Pre-Procedure Diagnosis: Non STEMI AUC Score AUC Score: 8 Post-Procedure Diagnosis Post-Procedure Diagnosis: Normal Coronary Arteries Procedure(s) Performed Procedure(s) Performed: Coronary Angiography, Left Heart Cath and LV Angiography Assembly Department Supervisor Ronal Garcia DO Equipment Operator Wage Hand(s) Parminder RTR Estimated Blood Loss Estimated Blood Loss: 8cc Medication(s) Medication(s): Fentanyl, Lidocaine 1% and Versed Summary of Findings Normal coronary arteries Hemodynamics Rest Ao:: 105/62/84 Final Ao: 103/56/77 LV: 106/-09/05 Recommendations Recommendations: Medical Therapy and/or Counseling Specimens Specimens: None Radiation Exposure (mGy) 714 Contrast (mls) 75 Fluids (cc crystalloids) Fluids (cc crystalloids): 103 Nss Anesthesia Moderate sedation. Start 0945. End 1043. Sedation Monitor Showers RN Procedural Complication(s) None Disposition PCU I attest to the content of the Intraoperative Record and any orders documented therein. Any exceptions are noted below. ACC Data: Associate Vice President Cardiac Status Clinical evaluation leading to the procedure CAD Presenation: Non STEMI Anginal Classification: CCS IV Heart Failure: No Cardiogenic Shock within 24 Hours: No Cardiac Arrest within 24 Hours: No Imaging Studies Past 6 Months: Yes Stress Studies Past 6 Months: No STEMI OR Non-STEMI Symptom Onset Date: 08/02/19 Symptom Onset Time: 20:01 Thrombolytics: No Coronary Anatomy Dominant: Right Left Main (% Stenosis): Normal LAD (% Stenosis): Normal D1 (% Stenosis): Normal D2 (% Stenosis): Normal Circumflex (% Stenosis): Normal OM1 (% Stenosis): Normal RCA (% Stenosis): Normal R PDA (% Stenosis): Normal R PL1 (% Stenosis): Normal R PL2 (% Stenosis): Normal AM (% Stenosis): Normal Left Ventricular Angiography EF (%): 60 Mitral Regurgitation: None Diagnostic Physicians Name: Ronal Garcia DO Status: Urgent Closure Device Percutaneous Entry Location: Femoral (Unable to pass wires (micropuncture and Land[place]) via radial access secondary to vasospasm.) Closure Device: Mynx Recommendations: Medical Therapy and/or Counseling Intraprocedure Events Significant Disection: No Perforation: No
[2019-08-04] MEDS ORDERED: ISOSORBIDE MONO EXTENDED REL 30 MG TABCR PO SCH (11:30)
--- NOTE | 2019-08-04 12:52 | Cardiology Progress Note ---
Date of Service August 04, 2019 Assessment & Plan (1) Non-ST elevation (NSTEMI) myocardial infarction: (2) Dyslipidemia: (3) Tobacco abuse: Cardiac catheterization reveals normal coronary anatomy. We will treat patient for coronary vasospasm. Discontinue low-dose metoprolol. Add isosor bide monohydrate 30 mg daily. Patient instructed to avoid cold temperatures. Post catheterization activity restrictions noted below. Continue aspirin and statin therapy. All questions answered satisfaction both patient and her . I will see her back for close follow-up in 2 to 4 weeks. ACTIVITY RECOMMENDATIONS: It is common to feel weak and fatigue for a few days. * Do not drive or operate any motorized equipment for the next three days. * Limit stair usage (2 or 3 trips a day only) for the next three days. * Do not lift anything heavier than 10 pounds for the next three days. * Do not engage in vigorous exercise or any sports for the next five days. * You may shower the day after your procedure, but do not immerse the area for three days. Cleanse the site gently with soap and water. SPECIAL CARE INSTRUCTIONS: * You may replace the pressure dressing or band-aid the morning after the procedure. * After your procedure, it is normal to have a small bruise or small lump at the site. Examine your site daily for any change in the bruise or lump, redness, swelling, drainage or numbness. Notify your doctor if any change. BLEEDING: * If there is a small amount of bleeding at the site, lie down and apply firm pressure with a clean cloth for ten minutes. When the bleeding stops, lie quietly keeping the procedure limb straight for six hours. Notify your doctor as soon as possible. * If the bleeding does not stop after ten minutes or if there is a large amount of bleeding or spurting, call 911 immediately. Continue to lie down and hold firm pressure until help arrives. SKIN IRRITATION: * You may experience some redness and/or swelling in the area where radiation was administered. If any skin irritation occurs, please contact your family physician. Subjective Patient seen and examined at the bedside. Cardiac catheterization revealing normal coronary anatomy. Radial artery spasm noted with access. No evidence of coronary vasospasm with engagement. Pain-free since procedure. present at bedside. Patient offers no additional concerns/complaints at this time. Review of Systems Review of Systems: All systems reviewed & are unremarkable except as noted in HPI & below Physical Exam Physical Exam: General: NAD, AAO x3, well nourished. HEENT: Normocephalic. Atraumatic. Conjunctiva pink, no scleral icterus. Neck: No carotid bruits, the carotid upstrokes are brisk. No JVD. No HJR Heart: Regular normal S-1 and S-2 no S-3 or S-4 gallop. No murmurs or rub appreciated. PMI is not displaced. No RV heave. Lungs: Clear bilateral without rales , rhonchi, or wheeze. Abdomen: Normal bowel sounds. Soft. Nontender. No masses or organomegaly. No abdominal bruits. Extremities: No clubbing, cyanosis, or edema. Pulses: radial=2/4, Dorsalis pedis =2/4, posterior tibial=2/4. Neuro: Cranial nerves grossly intact. No focal motor deficit. Results & Data Vital Signs (Past 12 Hours) Vital Signs Temp Pulse Pulse Pulse Resp BP BP 08/04/19 12:15 60 16 109/70 08/04/19 12:00 69 16 121/80 08/04/19 11:45 58 L 16 107/75 08/04/19 11:30 58 L 16 112/70 08/04/19 11:10 61 20 105/70 08/04/19 11:05 61 20 107/69 08/04/19 11:00 63 20 109/75 08/04/19 10:55 61 20 109/83 08/04/19 09:15 71 20 118/68 08/04/19 08:00 64 08/04/19 07:55 36.9 C 67 17 89/55 L 08/04/19 06:02 104/64 08/04/19 04:07 36.8 C 66 18 95/58 L Pulse Ox 08/04/19 12:15 100 08/04/19 12:00 100 08/04/19 11:45 100 08/04/19 11:30 97 08/04/19 11:10 100 08/04/19 11:05 100 08/04/19 11:00 100 08/04/19 10:55 100 08/04/19 09:15 99 08/04/19 08:00 08/04/19 07:55 98 08/04/19 06:02 08/04/19 04:07 98
--- NOTE | 2019-08-04 18:12 | Hospitalist Progress Note ---
Date of Service August 04, 2019 Assessment & Plan (1) Non-ST elevation (NSTEMI) myocardial infarction: troponins increased to 1.9, then 1.8 EKG T wave inversions in the inferior leads [employer]igator consulted- Dr. Garcia s/p Cardiac Cath: normal coronaries episode felt to be from Coronary Vasospasm patient chest pain free on discharge [employer] I[employer]igator recommends: Imdur 30mg po daily Aspirin 81mg po daily continue Lipitor 20mg po daily ff up with [facility] [employer] I[employer] Dr. Garcia in 2-4 weeks (2) Dyslipidemia: LDL 53; continue Lipitor (3) BRCA1 gene mutation positive in female: Status post double mastectomy with oophorectomy in 2014 at [facility], on hormone replacement therapy with estrogen patch and daily progesterone. Continue HRT. Subjective ff up for chest pain seen resting in bed, comfortable s/p cardiac cath chest pain free states she feels much better overall denies dizziness, headache, shortness of breath, abdominal pain ,nausea/vomiting no other symptoms Review of Systems Review of Systems: All systems reviewed & are unremarkable except as noted in HPI & below Physical Exam Physical Exam: General- oriented x 3, not in distress, speaks in sentences with no effort or accessory muscle use Head- atraumatic Eyes- PERRL, EOMI, anicteric ENT- oropharynx clear Neck- supple, no JVD, no adenopathy, no thyromegaly; carotids +2/2, no bruits appreciated Lungs- clear to auscultation bilaterally, no rales/wheezes Heart- normal rate, regular rhythm; no murmur, no gallop, no rub appreciated Abdomen- normal bowel sounds, nondistended, soft, nontender, no masses or hepatosplenomegaly Extremities- no pretibial edema, no calf tenderness; peripheral pulses intact Neuro- alert, oriented x 3; CN 2-12 grossly intact; motor 5/5 bilaterally;sensation 100% on all extremities; no other gross focal neurologic deficits Skin- warm & dry Results & Data Vital Signs (Past 12 Hours) Vital Signs Temp Pulse Pulse Pulse Resp BP BP 08/04/19 16:27 37.0 C 76 61 20 113/60 154/69 H 08/04/19 16:13 37.0 C 76 20 154/69 H 08/04/19 14:15 67 16 113/60 08/04/19 13:15 66 16 114/71 08/04/19 12:45 65 16 109/70 08/04/19 12:15 60 16 109/70 08/04/19 12:00 69 16 121/80 08/04/19 11:45 58 L 16 107/75 08/04/19 11:30 58 L 16 112/70 08/04/19 11:10 61 20 105/70 08/04/19 11:05 61 20 107/69 08/04/19 11:00 63 20 109/75 08/04/19 10:55 61 20 109/83 08/04/19 09:15 71 20 118/68 08/04/19 08:00 64 08/04/19 07:55 36.9 C 67 17 89/55 L Pulse Ox 08/04/19 16:27 97 08/04/19 16:13 97 08/04/19 14:15 98 08/04/19 13:15 99 08/04/19 12:45 100 08/04/19 12:15 100 08/04/19 12:00 100 08/04/19 11:45 100 08/04/19 11:30 97 08/04/19 11:10 100 08/04/19 11:05 100 08/04/19 11:00 100 08/04/19 10:55 100 08/04/19 09:15 99 08/04/19 08:00 08/04/19 07:55 98 Laboratory Results Laboratory Results - last 24 hr 08/03/19 08/04/19 08/04/19 20:46 00:36 01:36 WBC 5.45 RBC 4.44 Hgb 12.5 Hct 36.7 L MCV 82.7 MCH 28.2 MCHC 34.1 RDW Std Deviation 40.0 RDW Coeff of Benoit 13.1 Plt Count 228 MPV 9.1 Immature Gran % (Auto) 0.2 Neut % (Auto) 56.1 Lymph % (Auto) 31.6 Chaves % (Auto) 9.9 Eos % (Auto) 1.8 Baso % (Auto) 0.4 Immature Gran # (Auto) 0.01 Neut # (Auto) 3.06 Lymph # (Auto) 1.72 Chaves # (Auto) 0.54 Eos # (Auto) 0.10 Baso # (Auto) 0.02 APTT 61.0 H* PTT Ratio 2.3 Sodium Potassium Chloride Carbon Dioxide Anion Gap BUN Creatinine Est Cr Clr Drug Dosing Est GFR ( Amer) Est GFR (Non-Af Amer) BUN/Creatinine Ratio Glucose Calcium Magnesium Troponin I 1.940 H* Albumin Triglycerides Cholesterol LDL Cholesterol, Calc VLDL Cholesterol, Calc HDL Cholesterol Cholesterol/HDL Ratio 08/04/19 01:36 WBC RBC Hgb Hct MCV MCH MCHC RDW Std Deviation RDW Coeff of Benoit Plt Count MPV Immature Gran % (Auto) Neut % (Auto) Lymph % (Auto) Chaves % (Auto) Eos % (Auto) Baso % (Auto) Immature Gran # (Auto) Neut # (Auto) Lymph # (Auto) Chaves # (Auto) Eos # (Auto) Baso # (Auto) APTT PTT Ratio Sodium 141 Potassium 3.5 D Chloride 107 Carbon Dioxide 29 Anion Gap 5.0 BUN 10 Creatinine 0.76 Est Cr Clr Drug Dosing 85.0 Est GFR ( Amer) 113.7 Est GFR (Non-Af Amer) 98.1 BUN/Creatinine Ratio 13.6 Glucose 104 H Calcium 7.9 L Magnesium 2.4 Troponin I 1.880 H* Albumin 3.2 L Triglycerides 91 Cholesterol 118 LDL Cholesterol, Calc 53 VLDL Cholesterol, Calc 18 HDL Cholesterol 47 Cholesterol/HDL Ratio 3
--- NOTE | 2019-08-04 18:39 | Discharge Summary ---
Date of Service August 04, 2019 Admission HPI Per Admitting Provider 38-year-old female with onset of chest pain last night while sitting playing board game at her table. Pain was in the left anterior chest and did not radiate. Although did she did not report any associated symptoms to me she did report to the ER physician she had associated lightheadedness and nausea and felt short of breath with the pain. Her symptoms woke her up several times last night and the pain persisted when she woke up this morning and was associated with some nausea. She took an aspirin during the night but is unsure if it relieves her symptoms. 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 She is a non-smoker with risk factors including early menopause secondary to oophorectomy on hormone replacement therapy for the past 4 years and hyperlipidemia recently discovered and she was placed on Lipitor within the last couple of months. LDL is approximately 200. She has a family history of hyperlipidemia but no known history of early heart disease. She also reports a recent upper respiratory tract infection which involves symptoms of severe myalgia and malaise where she was lying in bed for almost a full day just 2 to 3 days ago. Her child was also ill with the same symptoms. These have since improved. Troponin is mildly elevated at 1.2 today otherwise EKG reveals no evidence of active ischemia, d- dimer is normal at 360. Her chest pain has resolved. She was given an aspirin 324 mg morning but has not had any nitroglycerin or other pain medication. She did take her Lipitor 20mg this morning. Review of systems also reveals one episode of diarrhea this morning. She denies any recent travel. Admission Exam Per Admitting Provider CONSTITUTIONAL: WNWD, vitals as above, generally well-appearing EYES: PERRL, normal conjunctivae, no scleral icterus ENT: external ear and nose normal, oropharynx clear, MMM NECK: trachea midline RESPIRATORY: clear to auscultation bilaterally, no crackles, rales or wheezes, normal respiratory effort CARDIOVASCULAR: regular rate and rhythm, S1 and 2 heard without murmurs, gallops or rubs, no JVD, no peripheral edema CHEST: inspection of chest was normal, nontender to palpation, skin appears normal. GASTROINTESTINAL: normal bowel sounds, soft, nontender, nondistended MUSCULOSKELETAL: strength 5/5 throughout, head is normocephalic and atraumatic SKIN: warm and dry NEUROLOGIC: CN 2-12 grossly intact, no sensory deficit, normal cognition, normal speech, no gross neurologic deficits. PSYCHIATRIC: alert cooperative and oriented to person, place and time. Principal Diagnosis NON ST ELEVATION MYOCARDIAL INFARCTION, LIKELY FROM CORONARY VASOSPASM Discharge Exam General- oriented x 3, not in distress, speaks in sentences with no effort or accessory muscle use Head- atraumatic Eyes- PERRL, EOMI, anicteric ENT- oropharynx clear Neck- supple, no JVD, no adenopathy, no thyromegaly; carotids +2/2, no bruits appreciated Lungs- clear to auscultation bilaterally, no rales/wheezes Heart- normal rate, regular rhythm; no murmur, no gallop, no rub appreciated Abdomen- normal bowel sounds, nondistended, soft, nontender, no masses or hepatosplenomegaly Extremities- no pretibial edema, no calf tenderness; peripheral pulses intact Neuro- alert, oriented x 3; CN 2-12 grossly intact; motor 5/5 bilaterally;sensation 100% on all extremities; no other gross focal neurologic d eficits Skin- warm & dry Discharge Data Allergies Allergy/AdvReac Type Severity Reaction Status Date / Time No Known Allergies Allergy Unverified 08/03/19 10:01 Consultations 08/03/19 11:01 ED Decision to Admit Stat 08/03/19 12:33 Consult Cardiology Routine 08/03/19 16:56 Consult Cardiac Catheterization Routine Procedures Performed Operation Date: 08/04/19 09:30 Actual Procedures p Cath, Left with Cors and Vent - Ronal Velazco DO s Cineradiography w/Routine Exam - Ronal Velazco DO Ordered Studies 08/04/19 09:17 CL Cath Imgs for PACS use only Routine Hospital Course (1) Non-ST elevation (NSTEMI) myocardial infarction: troponins increased to 1.9, then 1.8 EKG T wave inversions in the inferior leads Music Executive consulted- Dr. Velazco s/p Cardiac Cath: normal coronaries episode felt to be from Coronary Vasospasm patient chest pain free on discharge Music Executive recommends: Imdur 30mg po daily Aspirin 81mg po daily continue Lipitor 20mg po daily ff up with Music Executive Dr. Velazco in 2-4 weeks (2) Dyslipidemia: LDL 53; continue Lipitor (3) BRCA1 gene mutation positive in female: Status post double mastectomy with oophorectomy in 2015 at [facility], on hormone replacement therapy with estrogen patch and daily progesterone. Continue HRT. Total Time Total Time Spent Total Time Spent (In Minutes): 40 MINUTES Discharge Plan Discharge Items Patient Disposition: Home - Self-Care Reason For Visit: CHEST PAIN Discharge Diagnosis: CHEST PAIN, NON ST ELEVATION MYOCARDIAL INFARCTION Activity: As commented below Lifting: Wait until after follow-up appointment Exercise Comment: NOTED BELOW Driving/Machine Use: NOTED BELOW Non-emergency contact: Primary Care Provider Call non-emergency contact if: you have any medication questions, your symptoms worsen, your pain is not controlled, your pain is worsening, your pain is unusual for you, you have a fever, your wound has increased redness, your wound has increased drainage and your wound pain has increased Follow-up/Referrals: Ronal Velazco DO [Music Executive] - Alberto Sánchez MD [Primary Care Provider] - 08/08/19 11:05 am Diet: Heart Healthy Addtl Attending Provider Instructions: PLEASE FOLLOW UP WITH DR. VELAZCO SCHEDULED AND WITH DR. SÁNCHEZ ON TUESDAY JULY 09, 2019 AT 11:05 AM. PLEASE REVIEW YOUR NEW MEDICATION LIST AND FOLLOW INSTRUCTIONS CAREFULLY. ALWAYS TAKE ASPIRIN WITH A FULL STOMACH, ACTIVITY RECOMMENDATIONS: It is common to feel weak and fatigue for a few days. * Do not drive or operate any motorized equipment for the next three days. * Limit stair usage (2 or 3 trips a day only) for the next three days. * Do not lift anything heavier than 10 pounds for the next three days. * Do not engage in vigorous exercise or any sports for the next five days. * You may shower the day after your procedure, but do not immerse the area for three days. Cleanse the site gently with soap and water. SPECIAL CARE INSTRUCTIONS: * You may replace the pressure dressing or band-aid the morning after the procedure. * After your procedure, it is normal to have a small bruise or small lump at the site. Examine your site daily for any change in the bruise or lump, redness, swelling, drainage or numbness. Notify your doctor if any change. BLEEDING: * If there is a small amount of bleeding at the site, lie down and apply firm pressure with a clean cloth for ten minutes. When the bleeding stops, lie quietly keeping the procedure limb straight for six hours. Notify your doctor as soon as possible. * If the bleeding does not stop after ten minutes or if there is a large amount of bleeding or spurting, call 911 immediately. Continue to lie down and hold firm pressure until help arrives. SKIN IRRITATION: * You may experience some redness and/or swelling in the area where radiation was administered. If any skin irritation occurs, please contact your family physician. Pending Studies at Discharge: No Stand-Alone Forms: Call Back Authorization, [facility], Smoking Cessation Medications and DC Order Prescriptions: New isosorbide mononitrate 30 mg Tablet Extended Release 24 Hr 30 mg PO QAM Qty: 30 RF: 2 aspirin [Ecotrin Low Strength] 81 mg Tablet,Delayed Release (Dr/Ec) 81 mg PO QAM 30 Days Qty: 30 RF: 2 Continued multivitamin Tablet 1 tab PO QAM RF: 0 atorvastatin 20 mg tablet 20 mg PO DAILY RF: 0 estradiol 0.05 mg/24 hr patch semiweekly 1 patch topical [id number] RF: 0 progesterone micronized 100 mg capsule 100 mg PO DAILY RF: 0 omega [id number] oil [Fish Oil] 1,000 mg (120 mg-180 mg) Capsule 1 cap PO DAILY RF: 0 Discharge Orders: Discharge Order (Routine); Ordered 08/04/19 Ordered By: Fritz Wu Admission Data Admit Date/Time: 08/03/19 12:21 Attending Provider: Fritz Wu Admit Provider: Angie Pacheco Primary Care Provider: Alberto Sánchez Other Providers: Angie Pacheco ; Ronal Velazco Other Interventions: Discharge Summary Assessment (RN) Last Done: 08/04/19 16:27 DC Date/Time DO NOT enter until pt leaves facility: 08/04/19 16:55
[2019-08-05] MEDS ORDERED: ASPIRIN 81 MG ECTAB PO SCH (09:00)
== END 2019-08-04 16:55 | disposition home or self-care (01) ==
LOC: ED 08:42 → INTOOBSV 11:37 → SUATTDRO 11:37 → 2N 11:37 → 2E 08-04 11:31